=== PATIENT | female | born 2000 | race Two or more races ===

== ENCOUNTER 2023-01-13 12:15 | Emergency (ER) | payer OTHER ==
[2023-01-13 12:34] VITALS: BMI 26.4
[2023-01-13] MEDS ORDERED: ACETAMINOPHEN 1000 MG/100 ML BAG IVPB ONE (12:55)
[2023-01-13] MEDS ORDERED: ACETAMINOPHEN INJECTION 100 ML IVPB ONE (13:06)
[2023-01-13 13:36] LABS: BASO % 0.8 % (0-2.0); EOS % 0.2 % (0-4.5); HEMATOCRIT 36.7 % (32.4-45.2); HEMOGLOBIN 12.2 GM/dL (10.7-15.3); LYMPH % 31.1 % (8-40); MCH 28.9 pg (25.7-33.7); MCHC 33.2 g/dl (32.0-36.0); MEAN CELL VOLUME 87.3 fl (80-96); MEAN PLT VOLUME 8.7 fl (7.5-11.1); MONO % 7.3 % (3.8-10.2); NEUT % 60.6 % (42.8-82.8); PLATELET COUNT 325 10^3/uL (134-434); RBC 4.21 M/mm3 (3.60-5.2); RDW 13.5 % (11.6-15.6); WHITE BLOOD COUNT 5.4 K/mm3 (4.0-10.0)
[2023-01-13 13:59] LABS: POTASSIUM 3.9 mmol/L (3.5-5.1)
[2023-01-13 14:02] LABS: CALCIUM 9.2 mg/dL (8.5-10.1)
[2023-01-13 14:03] LABS: ALBUMIN 3.9 g/dl (3.4-5.0); BLOOD UREA NITROGEN 11.2 mg/dL (7-18)
[2023-01-13 14:07] LABS: BILIRUBIN,TOTAL 0.9 mg/dL (0.2-1)
[2023-01-13 14:08] LABS: TOT PROT 7.8 g/dl (6.4-8.2)
[2023-01-13 14:19] LABS: CREATININE 0.7 mg/dL (0.55-1.3)
[2023-01-13 15:50] VITALS: RESP 16; TEMP 98.3
[2023-01-13 17:02] VITALS: BP 98/55; PULSE 73
== END 2023-01-13 16:48 | disposition home or self-care (01) ==
LOC: JER 12:15
PROC: 3E033NZ Introduction of Analgesics, Hypnotics, Sedatives into Peripheral Vein, Percutaneous Approach (ICD-10-PCS; principal; 2023-01-13)
DX: R56.9 Unspecified convulsions (principal); R25.1 Tremor, unspecified; R51.9 Headache, unspecified; R25.2 Cramp and spasm; S06.0X9A Concussion with loss of consciousness of unspecified duration, initial encounter; X58.XXXA Exposure to other specified factors, initial encounter
CPT/HCPCS: 36415; 70450-TC; 80053; 82962; 84703; 85025; 93005; 93010; 99285-25